=== PATIENT | male | born 1965 | race Caucasian/White ===

== ENCOUNTER 2017-02-23 05:43 | Day surgery (SDC) | payer OTHER ==
[2017-02-23] VITALS (15 sets, daily range): BP systolic 118–156; BP diastolic 65–89; PULSE 84–96; RESP 11–20; Ht 165.1 cm; Wt 92.3 kg
[~2017-02-23] VITALS: Ht 165.1 cm; Wt 92.3 kg
[2017-02-23] MEDS ORDERED: ROPIVACAINE 0.5 % 30 ML VIAL ONE (08:13)
[2017-02-23] MEDS ORDERED: MIDAZOLAM 1 MG/ML 2 ML INJ ONE (08:15)
[2017-02-23] MEDS ORDERED: POLYMYXIN/BACITRACIN 1L IRRIG IRR ONE (08:46)
[2017-02-23] MEDS ORDERED: PHENYLephrine (100 MCG/ML) 5ML SYG ONE (08:49)
[2017-02-23] MEDS ORDERED: ROCURONIUM 50 MG INJ ONE (08:55)
[2017-02-23] MEDS ORDERED: SUGAMMADEX SODIUM 200 MG/2 ML VIAL IV ONE (08:55)
[2017-02-23] MEDS ORDERED: CEFAZOLIN 1 GM INJ ONE (08:55)
[2017-02-23] MEDS ORDERED: PROPOFOL 20 ML ONE (08:55)
[2017-02-23] MEDS ORDERED: SUCCINYLCHOLINE CHLORIDE 100 MG/5 ML SYG IV ONE (08:55)
[2017-02-23] MEDS ORDERED: LIDOCAINE 2% (SDV) 5 ML INJ ONE (08:55)
[2017-02-23] MEDS ORDERED: HYDROmorphONE (0.2 MG/ML) 10ML SYG IV PRN ×3 (09:30)
[2017-02-23] MEDS ORDERED: FENTAnyl 50 MCG/ML VIAL IV PRN ×2 (09:30)
[2017-02-23] MEDS ORDERED: MEPERIDINE 25 MG INJ IV PRN (09:30)
[2017-02-23] MEDS ORDERED: DIPHENHYDRAMINE 50 MG INJ IV PRN (09:30)
[2017-02-23] MEDS ORDERED: METOCLOPRAMIDE 10 MG INJ IV PRN (09:30)
[2017-02-23] MEDS ORDERED: ONDANSETRON 4 MG INJ IV PRN (09:30)
[2017-02-23] MEDS ORDERED: BUPIVACAINE 0.5%/EPI (SDV) 30 ML INJ ONE (09:42)
[2017-02-23] MEDS ORDERED: POLYMYXIN/BACITRACIN 1L IRRIG ONE (09:46)
--- NOTE | 2017-02-23 10:33 | SIPON ---
Date/Time of Note Date/Time of Note DATE: 02/23/17 TIME: 10:30 Operative Report Preoperative Diagnosis impingiment syndrome and arthritis of ac joint and rotator cuff tear Postoperative Diagnosis same Operation/Procedure Performed open decompression partial acromenectomy acromeoplasty excision of corco acroneoligament mumforv procedure and rotator cuff tear plastic closeur Surgeon see signature line training and development assistant none Anesthesia: general, other (segmental block) Estimated blood loss: 10 - 50 ml's Transfusion Required none Specimen parts of acromel distal clavical and bursa Grafts/Implants none Complications none NESTOR PERRY MD Feb 23, 2017 10:33
--- NOTE | 2017-02-25 19:53 | OPR ---
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 OPERATION PERFORMED: 1. Open decompression of the left shoulder, including: a) Partial acromionectomy. b) Acromioplasty. c) Excision of subacromial bursa. 3) Excision of coracoacromial ligament. 2. Ivan procedure - excision of distal clavicle, left shoulder. 3. Repair of rotator cuff left shoulder involving the supraspinatus using #2 FiberWire. 4. Classic closure of left shoulder. SURGEON: Nestor Perry MD. ANESTHESIOLOGIST: Dr. Calloway. ANESTHESIA: Regional block and general. DETAIL: He was brought to the operating room, placed on operative table. Anesthesiologist, Dr. Calloway started the intravenous. The patient was provided with 2 g Ancef intravenously, then he did regional block of the left upper extremity, combined with intubation and sedation. The patient was in the beach chair and he was positioned with the knees slightly flexed, upper body up about 30 to 35 degrees, and body slightly rotated to the left. Head was secured in position. The left shoulder and left upper extremity was excluded from rest of the patient using U drape. Prepping and draping of left upper extremity was done. Marking pen was used to outline incision site which was slightly lateral to the AC joint from approximately 2 fingerbreadths below the anterior margin of the acromion and up to the posterior AC level. The skin was opened. Small bleeders were controlled. Subcutaneous flaps were developed medially and laterally. Retractor was used. The anterior deltoid was lifted off the superior acromion and distal clavicle and protected subacromial area was reached. There was significant thickening and also anterolateral and inferior of the acromion. The AC joint showed degenerative changes. Small segment of distal clavicle also cleaned from soft tissue. While a wide metallic protector was placed under the acromion, anterior acromionectomy was done to the level of anterior AC space. Additional second cuts were done, cleaning out the anterior acromion and then the hypertrophic bursa was removed, the AC space was reached, the distal clavicle was protected posteriorly, anteriorly and also metallic protector was placed, and the distal acromion and AC space, following the cleaning AC space distal 1 cm clavicle also was removed. By palpation, areas where still shows roughening, an additional acromial smoothening were made and achieved by high speed rasp. Following completion of the decompression which also included excision of the coracoacromial ligament, subacromial area and rotator cuff reached. The rotator cuff shows a tear next to the greater tuberosity, full thickness tear was rather small. There was a surrounding area of approximately 1.5 to 2 cm of partial thickness tear also surrounding full thickness tear region. The repair of the rotator cuff was possible and done with two #2 FiberWire sutures with double passage for each stitch and multiple knots securing the repair in position. Range of motion of the shoulder was done. No other mechanical block or impingement encountered. No other pathology were present. Irrigation was done and closure was done approximating anterior deltoid to the bony structure and soft tissue above that with multiple stitches. Subcutaneous layer was approximated with 3-0 Vicryl. The skin was closed with Monocryl in subcuticular fashion. Area was cleaned, irrigated and dressed with a sterile dressing and shoulder immobilizer was applied before he was transferred to recovery room in satisfactory condition. Needle and sponge count were correct. ESTIMATED BLOOD LOSS: Less than 50 mL. Dictated By: NESTOR PERRY MD, SA/ANA Conf#: [id number] DID#: [id number]
== END 2017-02-23 12:30 | disposition home or self-care (01) ==
LOC: SDS 05:43
PROVIDERS: ATTEND Orthopaedic Surgery
DX: M75.42 Impingement syndrome of left shoulder (principal); M75.102 Unspecified rotator cuff tear or rupture of left shoulder, not specified as traumatic; M19.012 Primary osteoarthritis, left shoulder; E11.9 Type 2 diabetes mellitus without complications; I10 Essential (primary) hypertension; E66.9 Obesity, unspecified; Z68.33 Body mass index [BMI] 33.0-33.9, adult
CPT/HCPCS: 23415; 82962; J0690; J1170; J2175; J2250; J2405; J2795; J2370